=== PATIENT | female | born 1960 | race Caucasian/White ===

== ENCOUNTER 2016-11-21 11:25 | Emergency (ER) | payer OTHER ==
[~2016-11-21] VITALS: Ht 172.7 cm; Wt 74.0 kg
[2016-11-21 11:31] VITALS: BP 136/76
== END 2016-11-21 14:06 | disposition home or self-care (01) ==
LOC: ED 14:00
DX: S20.219A Contusion of unspecified front wall of thorax, initial encounter (principal); S30.0XXA Contusion of lower back and pelvis, initial encounter; F17.210 Nicotine dependence, cigarettes, uncomplicated; W01.0XXA Fall on same level from slipping, tripping and stumbling without subsequent striking against object, initial encounter; Y93.89 Activity, other specified; Y99.8 Other external cause status; Y92.89 Other specified places as the place of occurrence of the external cause
CPT/HCPCS: 72072; 72110; 99284

== ENCOUNTER 2017-06-22 11:22 | Emergency (ER) | payer OTHER ==
[~2017-06-22] VITALS: Ht 172.7 cm; Wt 71.8 kg
[2017-06-22 12:49] LABS: ALANINE AMINOTRANSFERASE 168 U/L (12-78); ALBUMIN 3.1 g/dL (3.4-5.0); ANION GAP 6 mmol/L (5-15); CALCIUM 8.1 mg/dL (8.5-10.1); CHLORIDE 111 mmol/L (98-107); CREATININE 0.53 mg/dL (0.55-1.02)
[2017-06-22 12:53] LABS: ALKALINE PHOSPHATASE 215 U/L (45-117); BILIRUBIN,TOTAL 2.8 mg/dL (0.2-1.0); TOTAL PROTEIN 5.7 g/dL (6.4-8.2); TROPONIN I < 0.015 ng/mL (0.000-0.045)
[2017-06-22 12:54] LABS: MEAN CORPUSCULAR HEMOGLOBIN 33.8 pg (27.0-34.8); MEAN CORPUSCULAR HGB CONC 34.5 g/dL (32.4-35.8); MEAN CORPUSCULAR VOLUME 98.1 fL (80-100); MEAN PLATELET VOLUME 8.6 fL (7.4-10.4); PLATELET COUNT 50 x10^3/uL (130-400); RED BLOOD COUNT 4.21 x10^6/uL (3.82-5.3); RED CELL DISTRIBUTION WIDTH 13.6 % (9.6-15.2)
[2017-06-22 13:23] LABS: BASOPHILS # (AUTO) 0.02 x10^3/uL (0-0.1); BASOPHILS % (AUTO) 1 % (0-1); EOSINOPHILS # (AUTO) 0.01 x10^3/uL (0-0.4); EOSINOPHILS % (AUTO) 1 % (1-7); LYMPHOCYTES # (AUTO) 0.86 x10^3/uL (1-3.4); LYMPHOCYTES % (AUTO) 32 % (22-44); MD SCAN; MONOCYTES # (AUTO) 0.43 x10^3/uL (0.2-0.8); MONOCYTES % (AUTO) 16 % (2-9); NEUTROPHILS # (AUTO) 1.33 x10^3/uL (1.8-6.8); NEUTROPHILS % (AUTO) 50 % (42-75)
[2017-06-22] MEDS ORDERED: SODIUM CHLORIDE FLUSH 10ML SYR IVF ONE (13:30)
[2017-06-22 13:37] LABS: INTERNATIONAL NORMALIZED RATIO 1.29 (0.93-1.1); PROTHROMBIN TIME 13.3 Seconds (9.6-11.5)
[2017-06-22 13:48] VITALS: BP 143/70
== END 2017-06-22 14:08 | disposition home or self-care (01) ==
LOC: ED 12:30
DX: D72.819 Decreased white blood cell count, unspecified (principal); D68.4 Acquired coagulation factor deficiency; E80.6 Other disorders of bilirubin metabolism; K76.89 Other specified diseases of liver; R74.0 Nonspecific elevation of levels of transaminase and lactic acid dehydrogenase [LDH]; R74.8 Abnormal levels of other serum enzymes; F10.20 Alcohol dependence, uncomplicated
CPT/HCPCS: 36415; 71045; 80053; 83735; 83880; 84484; 85025; 85610; 93005; 99285

== ENCOUNTER 2017-09-25 15:04 | Inpatient (IN) | payer OTHER ==
[~2017-09-25] VITALS: Ht 175.3 cm; Wt 80.0 kg
[~2017-09-25 15:04] MED LIST: FURO40TA6 PO; LEVO100T5 PO; SULF-169 PO
[2017-09-25 15:53] LABS: ALANINE AMINOTRANSFERASE 74 U/L (12-78); ALBUMIN 2.3 g/dL (3.4-5.0); ANION GAP 8 mmol/L (5-15); CALCIUM 8.2 mg/dL (8.5-10.1); CHLORIDE 101 mmol/L (98-107); CREATININE 1.03 mg/dL (0.55-1.02)
[2017-09-25 15:55] LABS: ALKALINE PHOSPHATASE 134 U/L (45-117); BILIRUBIN,TOTAL 2.2 mg/dL (0.2-1.0); TOTAL PROTEIN 5.1 g/dL (6.4-8.2)
[2017-09-25] MEDS ORDERED: VANCOMYCIN 1,500 MG in SODIUM CHLORIDE 0.9% 250 ML IV ONE (16:00)
[2017-09-25] MEDS ORDERED: SODIUM CHLORIDE 0.9% 1,000ML IVBOLUS ONE (16:00)
[2017-09-25] MEDS ORDERED: SODIUM CHLORIDE FLUSH 10ML SYR IVF ONE (16:00)
[2017-09-25] MEDS ORDERED: AMPICILLIN/SULBACTAM 3 GM in SODIUM CHLORIDE 0.9% 100 ML IVPB ONE (16:00)
[2017-09-25] MEDS ORDERED: VANCOMYCIN PER PHARMACY MC ONE (16:00)
[2017-09-25 16:07] LABS: BASOPHILS # (AUTO) 0.01 x10^3/uL (0-0.1); BASOPHILS % (AUTO) 0 % (0-1); EOSINOPHILS # (AUTO) 0.01 x10^3/uL (0-0.4); EOSINOPHILS % (AUTO) 0 % (1-7); LYMPHOCYTES # (AUTO) 0.69 x10^3/uL (1-3.4); LYMPHOCYTES % (AUTO) 18 % (22-44); MD SCAN; MEAN CORPUSCULAR HEMOGLOBIN 32.9 pg (27.0-34.8); MEAN CORPUSCULAR HGB CONC 34.2 g/dL (32.4-35.8); MEAN CORPUSCULAR VOLUME 96.4 fL (80-100); MEAN PLATELET VOLUME 7.5 fL (7.4-10.4); MONOCYTES # (AUTO) 0.73 x10^3/uL (0.2-0.8); MONOCYTES % (AUTO) 19 % (2-9); NEUTROPHILS # (AUTO) 2.46 x10^3/uL (1.8-6.8); NEUTROPHILS % (AUTO) 63 % (42-75); PLATELET COUNT 82 x10^3/uL (130-400); RED BLOOD COUNT 4.02 x10^6/uL (3.82-5.3); RED CELL DISTRIBUTION WIDTH 14.4 % (9.6-15.2)
[2017-09-25] MEDS ORDERED: LEVO750T26 PO (16:12)
[2017-09-25] MEDS ORDERED: FURO20TA3 PO (16:12)
[2017-09-25] MEDS ORDERED: PANT40TA5 PO (16:12)
[2017-09-25] MEDS ORDERED: SPIR100T2 PO (16:12)
[2017-09-25] MEDS ORDERED: LEVO50TA5 PO (16:13)
[2017-09-25] MEDS ORDERED: VANCOMYCIN PMX 1GM/200ML 200 ML IV ONE (18:00)
[2017-09-25] MEDS ORDERED: PHARMACY INSTRUCTION MC SCH (18:00)
[2017-09-25] MEDS ORDERED: VANCOMYCIN PER PHARMACY MC PRN (18:00)
[2017-09-25] MEDS ORDERED: ONDANSETRON 2MG/ML, 2ML IVPush PRN (18:00)
[2017-09-25] MEDS ORDERED: DIPHTHERIA-TETANUS ADULT 0.5ML IM-VACC ONE (18:00)
[2017-09-25] MEDS: FUROSEMIDE MC SCH (18:30)
[2017-09-25] MEDS ORDERED: TETANUS IMMUNE GLOBULIN/PF 250 UNIT IM ONE (19:00)
[2017-09-25 19:10] VITALS: BP 150/69
[2017-09-25] MEDS: SPIRONOLACTONE 100 MG TABLET PO SCH (20:39)
[2017-09-25] MEDS: HEPARIN 5,000 UNITS/ML, 1ML SQ SCH (20:39)
[2017-09-25] MEDS ORDERED: FUROSEMIDE 20 MG TABLET PO SCH (21:00)
[2017-09-25] MEDS ORDERED: PHARMACOKINETIC MONITORING MC PRN (21:00)
[2017-09-25] MEDS ORDERED: VANCOMYCIN 1,600 MG in SODIUM CHLORIDE 0.9% 250 ML IV SCH (21:00)
[2017-09-25] MEDS: PIPERACILLIN/TAZO/PMX 3.375GM 50 ML IV SCH (23:01)
[2017-09-26 01:19] VITALS: BP 144/62
[2017-09-26] MEDS: FUROSEMIDE MC SCH ×2 (02:30→08:41)
[2017-09-26] MEDS: PIPERACILLIN/TAZO/PMX 3.375GM 50 ML IV SCH ×4 (04:40→23:08)
[2017-09-26 05:04] LABS: MEAN CORPUSCULAR HEMOGLOBIN 32.3 pg (27.0-34.8); MEAN CORPUSCULAR HGB CONC 33.8 g/dL (32.4-35.8); MEAN CORPUSCULAR VOLUME 95.4 fL (80-100); RED BLOOD COUNT 3.51 x10^6/uL (3.82-5.3)
[2017-09-26 05:10] LABS: CHLORIDE 105 mmol/L (98-107)
[2017-09-26 05:18] LABS: ALANINE AMINOTRANSFERASE 56 U/L (12-78); ALBUMIN 1.8 g/dL (3.4-5.0); ALKALINE PHOSPHATASE 83 U/L (45-117); ANION GAP 6 mmol/L (5-15); BILIRUBIN,TOTAL 1.9 mg/dL (0.2-1.0); CALCIUM 7.8 mg/dL (8.5-10.1); CREATININE 0.98 mg/dL (0.55-1.02)
[2017-09-26 05:56] LABS: BASOPHILS # (AUTO) 0.02 x10^3/uL (0-0.1); BASOPHILS % (AUTO) 1 % (0-1); EOSINOPHILS # (AUTO) 0.02 x10^3/uL (0-0.4); EOSINOPHILS % (AUTO) 1 % (1-7); LYMPHOCYTES # (AUTO) 0.69 x10^3/uL (1-3.4); LYMPHOCYTES % (AUTO) 25 % (22-44); MD SCAN; MEAN PLATELET VOLUME 7.2 fL (7.4-10.4); MONOCYTES # (AUTO) 0.54 x10^3/uL (0.2-0.8); MONOCYTES % (AUTO) 20 % (2-9); NEUTROPHILS # (AUTO) 1.52 x10^3/uL (1.8-6.8); NEUTROPHILS % (AUTO) 55 % (42-75); PLATELET COUNT 62 x10^3/uL (130-400)
[2017-09-26 08:00] VITALS: BP 148/60
[2017-09-26] MEDS: SPIRONOLACTONE 100 MG TABLET PO SCH ×2 (08:31→20:35)
[2017-09-26] MEDS: HEPARIN 5,000 UNITS/ML, 1ML SQ SCH ×3 (08:32→23:09)
[2017-09-26] MEDS: LEVOTHYROXINE 50 MCG TABLET PO SCH (08:32)
[2017-09-26] MEDS: PANTOPROZOLE 40MG TABLET PO SCH (08:32)
[2017-09-26] MEDS ORDERED: FUROSEMIDE 20 MG TABLET PO SCH (09:00)
[2017-09-26] MEDS: FUROSEMIDE 40 MG TABLET PO SCH ×2 (10:00→20:35)
[2017-09-26 14:42] VITALS: BP 140/60
[2017-09-26] MEDS: VANCOMYCIN 1,600 MG in SODIUM CHLORIDE 0.9% 250 ML IV SCH (15:06)
[2017-09-26] MEDS: OXYcodone IR 5MG TABLET PO PRN (15:49)
[2017-09-26 21:20] VITALS: BP 94/54
[2017-09-27 00:35] VITALS: BP 98/57
[2017-09-27] MEDS ORDERED: METHOCARBAMOL 500 MG TABLET PO PRN (01:30)
[2017-09-27] MEDS: PIPERACILLIN/TAZO/PMX 3.375GM 50 ML IV SCH ×4 (05:28→23:03)
[2017-09-27] MEDS: LEVOTHYROXINE 50 MCG TABLET PO SCH (05:28)
[2017-09-27] MEDS: HEPARIN 5,000 UNITS/ML, 1ML SQ SCH ×3 (06:25→21:06)
[2017-09-27] MEDS: SPIRONOLACTONE 100 MG TABLET PO SCH ×2 (09:00→21:06)
[2017-09-27] MEDS: FUROSEMIDE 40 MG TABLET PO SCH ×2 (09:00→20:59)
[2017-09-27 09:12] VITALS: BP 95/56
[2017-09-27] MEDS: VANCOMYCIN 1,600 MG in SODIUM CHLORIDE 0.9% 250 ML IV SCH (09:14)
[2017-09-27] MEDS: OXYcodone IR 5MG TABLET PO PRN (09:15)
[2017-09-27] MEDS: PANTOPROZOLE 40MG TABLET PO SCH (09:15)
[2017-09-27 14:23] VITALS: BP 104/63
[2017-09-27 20:46] VITALS: BP 104/60
[2017-09-28 01:32] VITALS: BP 102/60
[2017-09-28] MEDS: VANCOMYCIN 1,600 MG in SODIUM CHLORIDE 0.9% 250 ML IV SCH ×2 (03:00→20:25)
[2017-09-28] MEDS: LEVOTHYROXINE 50 MCG TABLET PO SCH (05:15)
[2017-09-28] MEDS: PIPERACILLIN/TAZO/PMX 3.375GM 50 ML IV SCH ×4 (05:15→23:04)
[2017-09-28] MEDS: OXYcodone IR 5MG TABLET PO PRN ×3 (05:20→20:22)
[2017-09-28] MEDS: HEPARIN 5,000 UNITS/ML, 1ML SQ SCH ×3 (05:21→20:17)
[2017-09-28 05:45] LABS: CHLORIDE 105 mmol/L (98-107)
[2017-09-28 06:08] LABS: ALANINE AMINOTRANSFERASE 53 U/L (12-78); ALBUMIN 1.6 g/dL (3.4-5.0); ALKALINE PHOSPHATASE 106 U/L (45-117); ANION GAP 7 mmol/L (5-15); BILIRUBIN,TOTAL 1.4 mg/dL (0.2-1.0); CALCIUM 7.6 mg/dL (8.5-10.1); CREATININE 0.92 mg/dL (0.55-1.02); TOTAL PROTEIN 3.9 g/dL (6.4-8.2)
[2017-09-28 06:40] LABS: MEAN CORPUSCULAR HEMOGLOBIN 32.8 pg (27.0-34.8); MEAN CORPUSCULAR VOLUME 96.5 fL (80-100); RED BLOOD COUNT 3.43 x10^6/uL (3.82-5.3)
[2017-09-28 07:10] VITALS: BP 100/63
[2017-09-28 07:35] LABS: PLATELET COUNT 59 x10^3/uL (130-400)
[2017-09-28 07:37] LABS: MD YES; MEAN PLATELET VOLUME 7.4 fL (7.4-10.4)
[2017-09-28 07:46] LABS: <PLATELET ESTIMATE> DECREASED; <PLT MORPHOLOGY> NORMAL PLT MORPH; <RBC MORPHOLOGY> NORMAL; LYMPH#(MANUAL) 0.52 x10^3/uL (1-3.4); LYMPHS% (MANUAL) 18 % (22-44); MONOS#(MANUAL) 0.41 x10^3/uL (0.3-2.7); MONOS% (MANUAL) 14 % (2-9); SEG#(MANUAL) 1.97 x10^3/uL (1.8-6.8); SEGS% (MANUAL) 68 % (42-75)
[2017-09-28] MEDS: FUROSEMIDE 40 MG TABLET PO SCH ×2 (09:00→20:18)
[2017-09-28 09:58] VITALS: BP 95/57
[2017-09-28] MEDS: SPIRONOLACTONE 100 MG TABLET PO SCH ×2 (10:00→20:17)
[2017-09-28] MEDS: PANTOPROZOLE 40MG TABLET PO SCH (10:01)
[2017-09-28 12:49] VITALS: BP 108/70
[2017-09-28 19:50] VITALS: BP 105/69
[2017-09-28] MEDS ORDERED: SPIRONOLACTONE 100 MG TABLET PO SCH (21:00)
[2017-09-28] MEDS ORDERED: FUROSEMIDE 40 MG TABLET PO SCH (21:00)
[2017-09-29 00:31] VITALS: BP 104/65
[2017-09-29] MEDS: LEVOTHYROXINE 50 MCG TABLET PO SCH (04:58)
[2017-09-29] MEDS: PIPERACILLIN/TAZO/PMX 3.375GM 50 ML IV SCH ×3 (04:58→18:05)
[2017-09-29] MEDS: HEPARIN 5,000 UNITS/ML, 1ML SQ SCH ×3 (04:58→21:29)
[2017-09-29 07:03] VITALS: BP 99/52
[2017-09-29] MEDS: PANTOPROZOLE 40MG TABLET PO SCH (10:59)
[2017-09-29] MEDS: FUROSEMIDE 40 MG TABLET PO SCH ×2 (10:59→21:29)
[2017-09-29] MEDS: SPIRONOLACTONE 100 MG TABLET PO SCH ×2 (10:59→21:29)
[2017-09-29 14:00] VITALS: BP 91/50
[2017-09-29] MEDS: VANCOMYCIN 1,600 MG in SODIUM CHLORIDE 0.9% 250 ML IV SCH (16:10)
[2017-09-29 20:40] VITALS: BP 96/61
[2017-09-30] MEDS: PIPERACILLIN/TAZO/PMX 3.375GM 50 ML IV SCH ×5 (00:01→23:59)
[2017-09-30 01:22] VITALS: BP 112/64
[2017-09-30] MEDS: LEVOTHYROXINE 50 MCG TABLET PO SCH (06:00)
[2017-09-30] MEDS: HEPARIN 5,000 UNITS/ML, 1ML SQ SCH ×3 (06:00→23:59)
[2017-09-30 09:39] VITALS: BP 96/58
[2017-09-30] MEDS: VANCOMYCIN 1,600 MG in SODIUM CHLORIDE 0.9% 250 ML IV SCH (10:21)
[2017-09-30] MEDS: FUROSEMIDE 40 MG TABLET PO SCH ×2 (10:21→20:12)
[2017-09-30] MEDS: SPIRONOLACTONE 100 MG TABLET PO SCH ×2 (10:21→20:12)
[2017-09-30] MEDS: PANTOPROZOLE 40MG TABLET PO SCH (10:21)
[2017-09-30 15:57] VITALS: BP 98/56
[2017-09-30 19:30] VITALS: BP 97/67
[2017-09-30 20:16] VITALS: BP 107/67
[2017-10-01 02:46] VITALS: BP 97/60
[2017-10-01] MEDS: VANCOMYCIN 1,600 MG in SODIUM CHLORIDE 0.9% 250 ML IV SCH (03:15)
[2017-10-01] MEDS: PIPERACILLIN/TAZO/PMX 3.375GM 50 ML IV SCH (05:30)
[2017-10-01] MEDS: LEVOTHYROXINE 50 MCG TABLET PO SCH (05:30)
[2017-10-01 07:08] VITALS: BP 95/57
[2017-10-01] MEDS: PANTOPROZOLE 40MG TABLET PO SCH (08:41)
[2017-10-01] MEDS: SPIRONOLACTONE 100 MG TABLET PO SCH (08:41)
[2017-10-01] MEDS: FUROSEMIDE 40 MG TABLET PO SCH (08:41)
[2017-10-01] MEDS: HEPARIN 5,000 UNITS/ML, 1ML SQ SCH (08:41)
[2017-10-01] MEDS ORDERED: AMOX1TAB64 PO (10:16)
[2017-10-01] MEDS ORDERED: SULF1TAB24 PO (10:16)
[2017-10-01] MEDS ORDERED: FURO40TA6 PO (10:16)
== END 2017-10-01 12:10 | disposition home or self-care (01) | DRG 602 ==
LOC: ED 17:10 → EDIP 17:11 → ED 17:13 → 3NE 17:53 → DCLOUNGE 10-01 12:02
PROVIDERS: ADMIT Hospitalist; ATTEND Hospitalist
DX: L03.115 Cellulitis of right lower limb (principal); E43 Unspecified severe protein-calorie malnutrition; N17.0 Acute kidney failure with tubular necrosis; K70.30 Alcoholic cirrhosis of liver without ascites; K72.90 Hepatic failure, unspecified without coma; B19.20 Unspecified viral hepatitis C without hepatic coma; F10.10 Alcohol abuse, uncomplicated; L03.116 Cellulitis of left lower limb; E03.9 Hypothyroidism, unspecified; Z68.26 Body mass index [BMI] 26.0-26.9, adult; Z87.891 Personal history of nicotine dependence
CPT/HCPCS: 36415; 80053; 80202; 83735; 84100; 84443; 85025; 87040; 90714; 93970; 99285; J0295; J1644; J2543; J3370; J1670; J7050

== ENCOUNTER → 2018-06-19 | Outpatient (CLI) | payer OTHER ==
[~2018-06-19] MED LIST changes: +AMOX1TAB64 PO; +FURO20TA3 PO; +LEVO50TA5 PO; +LEVO750T26 PO; +PANT40TA5 PO; +SPIR100T4 PO; +SULF1TAB24 PO
== END | disposition home or self-care (01) ==
LOC: RAD 07:38
PROVIDERS: ATTEND Internal Medicine Gastroenterology
DX: D12.2 Benign neoplasm of ascending colon (principal); K29.60 Other gastritis without bleeding; R16.1 Splenomegaly, not elsewhere classified; B18.2 Chronic viral hepatitis C; K70.31 Alcoholic cirrhosis of liver with ascites; I85.00 Esophageal varices without bleeding; K25.9 Gastric ulcer, unspecified as acute or chronic, without hemorrhage or perforation; B96.81 Helicobacter pylori [H. pylori] as the cause of diseases classified elsewhere; K76.6 Portal hypertension; E50.9 Vitamin A deficiency, unspecified; E55.9 Vitamin D deficiency, unspecified
CPT/HCPCS: 76700

== ENCOUNTER 2018-11-21 07:59 | Outpatient (CLI) | payer OTHER | END 2018-11-21 23:59 | disposition home or self-care (01) | LOC: CFH 07:59 → EDSTATUS 08:30 → CFH 23:59 | PROVIDERS: ATTEND Family Medicine | DX: Z12.31 Encounter for screening mammogram for malignant neoplasm of breast (principal) | CPT/HCPCS: 77067 ==

== ENCOUNTER → 2019-06-24 | Outpatient (CLI) | payer OTHER | END | disposition home or self-care (01) | LOC: CFH 08:06 | PROVIDERS: ATTEND Internal Medicine Gastroenterology | DX: R16.1 Splenomegaly, not elsewhere classified (principal); K70.30 Alcoholic cirrhosis of liver without ascites; R76.8 Other specified abnormal immunological findings in serum; E50.9 Vitamin A deficiency, unspecified; E55.9 Vitamin D deficiency, unspecified; K76.0 Fatty (change of) liver, not elsewhere classified | CPT/HCPCS: 76700 ==

== ENCOUNTER → 2020-04-01 | Outpatient (CLI) | payer OTHER ==
[~2020-04-01] MED LIST changes: -PANT40TA5 PO; +PANT40TA6 PO
== END | disposition home or self-care (01) ==
LOC: CFH 07:21
PROVIDERS: ATTEND Family Medicine
DX: Z12.31 Encounter for screening mammogram for malignant neoplasm of breast (principal)
CPT/HCPCS: 77063; 77067